=== PATIENT | male | born 1995 | race Hispanic/Latino ===

== ENCOUNTER → 2024-04-22 | Day surgery (SDC) | payer BC ==
[~2024-04-22] MED LIST: FENTANYL CITRATE/PF 100MCG/2 ML INJ ONE; FINASTERIDE5 MG PO; GLYCOPYRROLATE INJ 0.2 MG/ML VIAL ONE; LIDOCAINE HCL 2% LOCAL INJ 5 ML SDV VIAL INJ ONE; MIDAZOLAM HCL 2 MG/2 ML VIAL ONE; PROPOFOL IV EMULSION 10 MG/ML 20 ML VIAL ONE
[2024-04-22] MEDS: LACTATED RINGER'S 1,000 ML ONE (12:46)
[2024-04-22 16:08] VITALS: TEMP 98.3
[2024-04-22 16:25] VITALS: O2SAT 100
[2024-04-22 16:40] VITALS: BP 102/64; PULSE 67; RESP 16
== END | disposition home or self-care (01) ==
LOC: OR 12:27
PROVIDERS: ATTEND Internal Medicine Gastroenterology
DX: K62.5 Hemorrhage of anus and rectum (principal); K29.70 Gastritis, unspecified, without bleeding; K44.9 Diaphragmatic hernia without obstruction or gangrene; K59.00 Constipation, unspecified; K64.8 Other hemorrhoids; Z79.899 Other long term (current) drug therapy
CPT/HCPCS: 43239; 45378; J2003; J2250; J2704; J3010; J7121